=== PATIENT | male | born 1995 | race Caucasian/White ===

== ENCOUNTER 2021-08-15 00:24 | Emergency (ER) | payer OTHER, SELFPAY ==
[2021-08-15 01:02] VITALS: BP 124/52; PULSE 88; RESP 16; TEMP 37; O2SAT 96; BMI 27.2
[2021-08-15 03:49] VITALS: BP 110/66; PULSE 76; RESP 16; TEMP 36.4; O2SAT 97
[2021-08-15] MEDS: Diphth,Pertus(ACell),Tet Adult 0.5 ML SYRINGE IM (05:02)
[2021-08-15] MEDS: Lidocaine HCl 2 % MPF 5 ML VIAL SUBCUT (05:03)
--- NOTE | 2021-08-15 05:04 | ED.SKABFB ---
HPI - Skin/Abscess/Foreign Bdy General Chief complaint: Skin/Abscess/Foreign Body Stated complaint: lac @ work Time Seen by Provider: 08/15/21 04:37 Source: patient Mode of arrival: ambulatory History of Present Illness HPI narrative: 26-year-old male without significant past medical history presents with laceration to the left index finger while at work with scissors. Patient is unsure of last tetanus shot. Related Data Allergies Allergy/AdvReac Type Severity Reaction Status Date / Time No Known Allergies Allergy Verified 08/15/21 01:01 Review of Systems Review of Systems: Pertinent positives and negatives as stated in HPI 10 point review of systems is otherwise negative. PMFSH Past Medical History Source: nursing notes reviewed Medical History No known health problems Social History Social History Advance Directives: No Advance Directives Information Provided: No Physical Exam Vital Signs: Vital Signs: Last Vital Signs Temp 97.5 F 08/15/21 03:49 Pulse 76 08/15/21 03:49 Resp 16 08/15/21 03:49 BP 110/66 08/15/21 03:49 Pulse Ox 97 08/15/21 03:49 BMI result Body Mass Index 27.2 VITAL SIGNS: Reviewed. GENERAL: Well developed, well nourished, in no acute distress. HEAD: Normocephalic/atraumatic, EYES: PERRLA, EOMI LUNGS: Normal breath sounds. No adventitious sounds or accessory muscle use. SpO2<97> CARDIOVASCULAR: Regular rate and rhythm without noted murmurs ABDOMEN: Soft, non-tender, non-distended with bowel sounds. LEFT FINGER: No deformity but there is laceration to the tip of the finger NEUROLOGIC: Alert and oriented x 4. Course Course Course Narrative: Minor laceration to the left tip of index finger. Repaired with Dermabond after copious irrigation due to superficiality. Patient received Tdap. Procedures Laceration Laceration 1: Site: upper extremity Side (If applicable): left Size (cm): 1 Description: linear Depth: simple, single layer Local Anesthetic: lidocaine 2% Amount of anesthesia used (mL): 5 Pre-repair: wound explored, irrigated extensively and deep structures intact Skin layer closed with: other Discharge Plan Discharge Clinical Impression: Laceration of finger of left hand Patient Disposition: Home, Self-Care Instructions: Laceration (ED), Skin Adhesive Care (ED) Additional Instructions: Recommend [id number] Tylenol/ibuprofen as needed for pain control. Do not remove the dressing for 24 hours. You may return to work without limitations other than wearing a protective covering over that finger. Return to the ER for any worsening of symptoms.
== END 2021-08-15 05:57 | disposition home or self-care (01) ==
PROVIDERS: Emergency Provider Student in an Organized Health Care Education/Training Program
DX: S61.211A Laceration without foreign body of left index finger without damage to nail, initial encounter (principal); W27.2XXA Contact with scissors, initial encounter; Y93.89 Activity, other specified; Y92.59 Other trade areas as the place of occurrence of the external cause; Y99.0 Civilian activity done for income or pay
CPT/HCPCS: 12001; 90471; 90715; 99284

== ENCOUNTER 2022-08-28 19:49 | Emergency (ER) | payer OTHER, SELFPAY ==
--- NOTE | 2022-08-28 20:14 | PC.NURSE ---
Pt called @ 2013 and was not in the WR.
== END 2022-08-28 21:06 | disposition left against medical advice (07) ==
LOC: HO.ED 21:03
PROVIDERS: Emergency Provider Emergency Medicine
DX: J02.9 Acute pharyngitis, unspecified (principal)

== ENCOUNTER 2023-12-01 20:51 | Emergency (ER) | payer BC, SELFPAY ==
--- NOTE | ~2023-12-01 | XR_ITS ---
EXAMINATION: XR CHEST CLINICAL INFORMATION: Shortness of breath COMPARISON: None available. TECHNIQUE: Frontal view of the chest was obtained. FINDINGS: The cardiac and mediastinal contours are normal. The lungs are well-inflated. There is question of increased central bronchial wall thickening. No evidence of lobar pneumonia. No pleural effusion or pneumothorax. Bony structures unremarkable. XR/XR chest 1V IMPRESSION: Hyperinflation and question central bronchial wall thickening. No evidence of pneumonia.
[2023-12-01 20:56] VITALS: BP 160/110; PULSE 130; O2SAT 99
--- NOTE | 2023-12-01 21:09 | ECG_ITS ---
Test Reason : ATHSMA Blood Pressure : / mmHG Vent. Rate : 112 BPM Atrial Rate : 112 BPM P-R Int : 134 ms QRS Dur : 084 ms QT Int : 322 ms P-R-T Axes : 079 091 057 degrees QTc Int : 439 ms Sinus tachycardia Rightward axis Borderline ECG No previous ECGs available Referred By: Dave Woo Electronically Signed By:BERTHA ZEE
[2023-12-01 21:10] VITALS: BP 131/88; PULSE 113; RESP 24; TEMP 36.6; O2SAT 96; BMI 24.4
[2023-12-01] MEDS: predniSONE 20 MG TABLET 60 MG PO (21:16)
[2023-12-01] MEDS: Magnesium Sulfate/H2O 2 GM/50 ML PIGGYBACK IV (21:31)
--- NOTE | 2023-12-01 21:33 | PC.NURSE ---
RT called to assess patient, bronch protocol in. RT stated that provider told him the patient did not need intervention upon admission to ED. Informed ED and provider that patient is wheezy in all 4 quadrants, needs RT assessment, provider to bedside, RT to come and assess patient. 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
[2023-12-01 21:42] LABS: COVID-19 Test Negative (Negative); IDNOW Serial# 152EDE1D
[2023-12-01] MEDS: Albuterol Sulfate 2.5 MG, Albuterol/Iprat 2.5/0.5MG 3 ML 3 ML INHALE (21:42)
[2023-12-01 21:45] VITALS: PULSE 119; RESP 12; O2SAT 96
--- NOTE | 2023-12-01 22:26 | ED.ASTHMA ---
HPI - Asthma General Chief Complaint: Asthma Stated Complaint: Difficulty breathing Time Seen by Provider: 12/01/23 21:00 Source: patient Mode of arrival: ambulatory Limitations: no limitations History of Present Illness ED Provider: bety VARELA Narrative: Patient with no history of asthma in the past using inhaler for last 2 years off and on brother has history of asthma no new chemicals at work or home does have a cat for long time comes here for increased shortness of breath saturating in 86% improved after 4 L to 100% and received DuoNeb treatment by EMS Related Data Previous Rx's ?Medication ?Instructions ?Recorded albuterol sulfate 90 mcg/actuation 2 puff inhalation Q4-6H PRN 12/01/23 aerosol inhaler (ProAir HFA) shortness of breath or wheezing #8.5 grams prednisone 20 mg tablet 40 mg (2 x 20 mg) PO DAILY #10 tabs 12/01/23 Allergies Allergy/AdvReac Type Severity Reaction Status Date / Time No Known Allergies Allergy Verified 12/01/23 21:12 Review of Systems Review of Systems: Yes all other systems are reviewed and are negative [facility] Past Medical History Medical History No known health problems Social History Social History Alcohol intake: current Alcohol intake frequency: a few times a week Smoked in Last 30 Days: No Use of substances other than those prescribed or required for medical reasons: Yes Substance Use Type: Marijuana Substance Use Frequency: Socially Advance Directives: No Advance Directives Information Provided: No Do you have a plan to hurt others: No Plan Physical Exam Vital Signs: Vital Signs: Last Vital Signs Temp 97.9 F 12/01/23 23:04 Pulse 110 H 12/01/23 23:04 Resp 16 12/01/23 23:04 BP 112/82 12/01/23 23:04 Pulse Ox 95 12/01/23 23:04 O2 Del Method Room Air 12/01/23 23:04 Oxygen Flow Rate 3 12/01/23 21:10 BMI result Body Mass Index 24.4 Appearance: Alert. Oriented X3. Moderate respiratory distress Eyes: PERRLA, No Nystagmus ENT: Pharynx normal. Oral Mucosa moist Neck: Normal inspection. Neck supple. CVS: Normal heart rate and rhythm. Pulses normal. Respiratory: Moderate respiratory distress. Equal air entry bilateral, bilateral wheezing Abdomen: Soft and nontender. Bowel sounds are present, no mass palpable, no CVA tenderness Skin: Skin warm and dry. Normal skin color. Normal skin turgor. Extremities: No lower extremity edema. No calf tenderness Neuro: Oriented X 3. Medications Administered Discontinued Medications Generic Name Dose Route Start Last Admin Trade Name Freq PRN Reason Stop Dose Admin Albuterol Sulfate 2.5 mg/ 0 mg 12/01/23 21:39 12/01/23 21:42 Albuterol/Ipratropium 3 ml INHALE 12/01/23 21:40 2.5 dose ONCE ONE Administration Magnesium Sulfate 2 gm in 50 mls @ 150 mls/hr 12/01/23 21:27 12/01/23 21:52 Magnesium Sulfate/H2o IV 12/01/23 21:46 Infused ONCE ONE Infusion Prednisone 60 mg 12/01/23 21:00 12/01/23 21:16 Prednisone 20 Mg Tablet PO 12/01/23 21:01 60 mg ONCE ONE Administration Medical Decision Making Medical Decision Making [facility] Narrative: Patient has severe asthma with history of asthma for last 2 years improved after nebulizing treatment will discharge patient home on inhaler and prednisone Admission/Observation Consideration of admission/observation: Escalation of care including admission/observation considered Lab Data [facility] Lab Attestation statement: I reviewed the patient's lab results. Labs: Lab Results 12/01/23 Range/Units 21:24 COVID-19 ([facility]ASIA) Negative (Negative) COVID-19 Clin Com See Note Independent Interpretation I performed an independent interpretation of an: Plain X-Ray Radiology Impression Discussion of test interpretation with radiology: I have reviewed the radiologist's reading. Discharge Plan Discharge Clinical Impression: Asthma with acute exacerbation Patient Disposition: Home, Self-Care Instructions: Asthma (ED) Additional Instructions: Use inhaler and prednisone as prescribed Follow with your PCP if not better Prescriptions: New prednisone 20 mg tablet 40 mg PO DAILY Qty: 10 0RF albuterol sulfate [ProAir HFA] 90 mcg/actuation HFA aerosol inhaler 2 puff inhalation Q4-6H PRN (Reason: shortness of breath or wheezing) Qty: 8.5 0RF Interventions: ED Discharge Assessment Last Done: 12/01/23 23:04 Discharge Date/Time: 12/01/23 23:06 Print Language: Albanian
[2023-12-01 22:41] VITALS: BP 112/82; PULSE 118; RESP 16; O2SAT 95
[2023-12-01 23:04] VITALS: BP 112/82; PULSE 110; RESP 16; TEMP 36.6; O2SAT 95
== END 2023-12-01 23:06 | disposition home or self-care (01) ==
PROVIDERS: Emergency Provider Internal Medicine
DX: J45.901 Unspecified asthma with (acute) exacerbation (principal); Z11.52 Encounter for screening for COVID-19
CPT/HCPCS: 71045; 87635; 93005; 94640; 96365; 99284; 99285; J3475

== ENCOUNTER → 2023-12-01 21:09 | Outpatient (BNV) | payer SELFPAY | PROVIDERS: Emergency Provider Internal Medicine; Visit Provider Internal Medicine | DX: R00.0 Tachycardia, unspecified (principal) | CPT/HCPCS: 93010 ==

== ENCOUNTER 2023-12-12 09:38 | Emergency (ER) | payer BC, SELFPAY ==
[2023-12-12 09:40] VITALS: BP 138/101; PULSE 98; RESP 16; TEMP 36.4; O2SAT 97; BMI 28.7
--- NOTE | 2023-12-12 09:52 | ED_ITS ---
HPI - General Adult General Chief complaint: General Medical Stated complaint: wanting antibiotics Time Seen by Provider: 12/12/23 09:46 Source: patient Mode of arrival: ambulatory Limitations: no limitations History of Present Illness ED Provider: Cal Moe PA-C HPI narrative: 28-year-old male healthy with no past medical history presents to ED for penile discharge after unprotected sex 4 days ago. Patient denies ever having any testicular pain. Patient denies any penile lesions. Patient states no nausea, vomiting, fever, flank pain, abdominal pain, or chills. Related Data Previous Rx's ?Medication ?Instructions ?Recorded albuterol sulfate 90 mcg/actuation 2 puff inhalation Q4-6H PRN 12/01/23 aerosol inhaler (ProAir HFA) shortness of breath or wheezing #8.5 grams prednisone 20 mg tablet 40 mg (2 x 20 mg) PO DAILY #10 tabs 12/01/23 doxycycline hyclate 100 mg capsule 100 mg PO BID 7 days #14 caps 12/12/23 Allergies Allergy/AdvReac Type Severity Reaction Status Date / Time No Known Allergies Allergy Verified 12/12/23 09:41 Review of Systems Review of Systems: Penile discharge Yes all other systems are reviewed and are negative PMFSH Past Medical History Medical History No known health problems Social History Social History Alcohol intake: current Alcohol intake frequency: a few times a week Substance Use Type: Marijuana Advance Directives: No Advance Directives Information Provided: No Do you have a plan to hurt others: No Plan Physical Exam ED Vital Signs: Vital Signs - 24 hr 12/12/23 09:40 12/12/23 10:14 Temperature 97.6 F 98.4 F Pulse Rate 98 98 Respiratory Rate 16 16 Blood Pressure 138/101 H 155/88 H Pulse Oximetry 97 99 Oxygen Delivery Method Room Air Room Air BMI result Body Mass Index 28.7 Const General: cooperative, healthy appearing, comfortable, no acute distress, well developed, alert, awake and Physically active Orientation/consciousness: oriented to person, oriented to place, oriented to time and patient oriented x3 HENMT Head: Yes normal to inspection, Yes No palpable skull fracture present, Yes normocephalic, Yes atraumatic and No abrasion Eyes General: appearance normal, both eyes and all related structures Neck Neck: Yes normal visual inspection, Yes full ROM, Yes no lymphadenopathy, Yes no meningeal signs, Yes trachea midline, Yes supple, No anterior neck swelling and No tender Chest Chest palpation & inspection: normal inspection of the chest and normal palpation of entire chest wall Resp Effort & Inspection: normal respiratory effort and able to speak in complete sentences Auscultation: clear to auscultation bilaterally Cardio Jugular venous distension: no JVD Heart sounds: S1 normal heart sound present and S2 normal heart sound present GI Inspection: Yes normal to inspection Palpation (GI): Soft to palpation, not firm, nontender, no guarding and not rigid Other: Negative for any penile lesions, testicular swelling, testicular tenderness, high riding testicle, ecchymosis, redness, or vesicular lesion General: Yes Bimanual renal exam normal bilaterally, No CVA tenderness and Yes no CVA tenderness Male General Exam: Yes normal external exam Penis: normal penis Meatus: meatus normal Scrotum: scrotum normal Testes: Testes normal Back/Spine/Pelvis Back: no CVA tenderness, No CVA tenderness and No back tenderness Skin General skin exam: no rashes or lesions noted, elasticity normal and turgor normal Neuro General: oriented to person, oriented to place, oriented to time, patient oriented x3, gait normal, tone normal, moves all extremities, Normal light touch and pain sensation, no meningeal signs, no focal motor deficits, CN's II-XI intact bilaterally and normal sensation to monofilament Extrem General: Yes normal to inspection, Yes full ROM and Yes capillary refill normal Psych Appearance: grossly normal, well kempt and not disheveled Medications Administered Discontinued Medications Generic Name Dose Route Start Last Admin Trade Name Freq PRN Reason Stop Dose Admin Ceftriaxone Sodium 500 mg/ 0 mg 12/12/23 10:01 12/12/23 10:35 Lidocaine HCl 1 ml IM 12/12/23 10:02 1 kit ONCE ONE Administration Medical Decision Making Medical Decision Making [facility] Narrative: 28-year-old male presents to ED for penile discharge after having unprotected sex 4 days ago. Triage says testicular pain, but patient denies ever having testicular pain. Patient was formed if he has testicular pain we will do ultrasound to make sure torsion or epididymitis. Patient was offered ultrasound but the patient is refusing states he did not have any testicular pain. Patient explained risks of not have ultrasound like torsion epididymitis. Patient explained risks and he still states he like to be discharged and will return if she has any testicular pain abdominal pain, flank pain, lesions, or any other concerning symptoms. Patient informed to follow-up with [facility] for further STI testing. Patient explained worrisome signs and informed to return to the ED if she has them. Differential Diagnosis Differential Diagnoses: The differential diagnosis associated with the presentation includes (chlaymida, gonorheaa, HErpes) Admission/Observation Consideration of admission/observation: Escalation of care including admission/observation considered Lab Data [facility] Lab Attestation statement: I reviewed the patient's lab results. Labs: Lab Results 12/12/23 Range/Units 09:56 Urine Color Yellow Urine Appearance Clear Urine pH 6.0 (5.0-9.0) Ur Specific [place] 1.020 (1.005-1.025) Urine Protein Negative (Neg-Trace) mg/dL Urine Glucose (UA) Negative (Negative) mg/dL Urine Ketones Negative (Negative) mg/dL Urine Blood Negative (Negative) Urine Nitrite Negative (Negative) Ur Leukocyte Esterase Negative (Negative) Urine RBC 0-2 (0-2) /HPF Urine WBC 0-5 (0-5) /HPF Ur Squamous Epith Cells 0-2 (0-2) /HPF Urine Bacteria None Seen (None Seen) Hyaline Casts 0-2 (0-2) /LPF Chlam trachomat DNA PCR NOT DETECTED (Not Detect.) N.gonorrhoeae DNA (PCR) NOT DETECTED (Not Detect.) Independent Historian Clinical information obtained from an independent historian. History obtained from or confirmed by: Other (patient) External Record Review External record reviewed: Other (prior visits) Prescription Management I considered prescription management with: Antibiotic Discharge Plan Discharge Clinical Impression: Discharge from penis Patient Disposition: Home, Self-Care Instructions: Safe Sex Practices (ED) Additional Instructions: You will be called with results of chlamydia gonorrhea. You refused a testicular ultrasound. Return to the ED immediately if you have any testicular pain, scrotal pain, high riding testicles, dysuria, hematuria, flank pain, abdominal pain, chills, profuse penile discharge, penile lesions or any other concerning symptoms. Recommend follow-up with primary care provider. Follow up with [facility] for further STI testing. [facility] Prescriptions: New doxycycline hyclate 100 mg capsule 100 mg PO BID 7 Days Qty: 14 0RF No Action prednisone 20 mg tablet 40 mg PO DAILY Qty: 10 0RF albuterol sulfate [ProAir HFA] 90 mcg/actuation HFA aerosol inhaler 2 puff inhalation Q4-6H PRN (Reason: shortness of breath or wheezing) Qty: 8.5 0RF Interventions: ED Discharge Assessment Last Done: 12/12/23 10:30 Discharge Date/Time: 12/12/23 11:25 Print Language: Italian
[2023-12-12 10:05] LABS: Appearance Urine Clear; Color Urine Yellow; Glucose Urine UA Negative (Negative); Leukocyte Esterase Urine Negative (Negative); Nitrite Urine Negative (Negative); Urine Blood Negative (Negative); Urine Ketones Negative (Negative); Urine Protein Negative (Neg-Trace)
[2023-12-12 10:07] LABS: Bacteria Urine None Seen (None Seen); Hyaline Casts Urine 0-2 /LPF (0-2); RBC Urine 0-2 /HPF (0-2); Squamous Epithelial Cell Urine 0-2 /HPF (0-2); WBC Urine 0-5 /HPF (0-5)
[2023-12-12 10:14] VITALS: BP 155/88; PULSE 98; RESP 16; TEMP 36.9; O2SAT 99
[2023-12-12 10:30] VITALS: BP 155/88; PULSE 98; RESP 16; TEMP 36.9; O2SAT 99
[2023-12-12] MEDS: cefTRIAXone sodium 500 MG, Lidocaine HCl 1 % MPF 1 ML IM (10:35)
[2023-12-12 13:48] LABS: CT PCR NOT DETECTED (Not Detect.); NG PCR NOT DETECTED (Not Detect.)
== END 2023-12-12 11:25 | disposition home or self-care (01) ==
PROVIDERS: Emergency Provider Emergency Medicine; PCP Internal Medicine
DX: R36.9 Urethral discharge, unspecified (principal); Z79.899 Other long term (current) drug therapy; Z20.2 Contact with and (suspected) exposure to infections with a predominantly sexual mode of transmission
CPT/HCPCS: 0353U; 81001; 96372; 99283; 99284; J0696

== ENCOUNTER 2024-06-19 05:18 | Emergency (ER) | payer BC, SELFPAY ==
[2024-06-19 05:28] VITALS: BP 127/91; BP 138/82; PULSE 122; PULSE 98; RESP 13; O2SAT 92; O2SAT 96; BMI 29.4
--- NOTE | 2024-06-19 06:05 | ED.SOB ---
HPI - SOB/Dyspnea General Chief Complaint: Dyspnea Stated Complaint: SOB/asthma Time Seen by Provider: 06/19/24 06:01 Source: patient and EMS Mode of arrival: EMS Limitations: no limitations History of Present Illness ED Provider: Dr. Mirian Tolbert HPI Narrative: patient comes to the emergency room complaining of an asthma exacerbation. Patient states that for the last 2 days he has been feeling short of breath, using his inhaler every 2-3 hours. Patient states that his cousin land him a neb machine to give himself neb treatments. However, patient is not feeling any better. Related Data Previous Rx's ?Medication ?Instructions ?Recorded albuterol sulfate 90 mcg/actuation 2 puff inhalation Q4-6H PRN 12/01/23 aerosol inhaler (ProAir HFA) shortness of breath or wheezing #8.5 grams prednisone 20 mg tablet 40 mg (2 x 20 mg) PO DAILY #10 tabs 12/01/23 doxycycline hyclate 100 mg capsule 100 mg PO BID 7 days #14 caps 12/12/23 albuterol sulfate 90 mcg/actuation 2 puff inhalation Q4-6H PRN 06/19/24 aerosol inhaler shortness of breath or wheezing #8.5 grams prednisone 50 mg tablet 50 mg PO DAILY #5 tabs 06/19/24 Allergies Allergy/AdvReac Type Severity Reaction Status Date / Time No Known Allergies Allergy Verified 06/19/24 05:35 Review of Systems Review of Systems: Constitutional : No Weight loss, No Fever, No Chills, No Night Sweats, No Fatigue, No Malaise ENT/Mouth : No Hearing loss, No Ear Pain, No Nasal Congestion, No Sinus Pain, No Hoarseness, No sore throat, No Rhinorrhea, No Swallowing Difficulty Eyes: No Eye Pain, No Swelling, No Redness, No Foreign Body, No Discharge, No Vision Changes Cardiovascular : No Chest Pain, No SOB, No Dyspnea on Exertion, No Orthopnea, No Edema, No Palpitations Respiratory : Complaining of cough, wheezing, shortness of breath Gastrointestinal : No Nausea, No Vomiting, No Diarrhea, No Constipation, No abdominal Pain, No Hematochezia, No Melena Genitourinary : no irregular bleeding, No Dysuria, No Urinary Frequency, No Hematuria, No Urinary Incontinence, No Urgency, No Flank Pain, No Urinary Flow Changes, No Hesitancy Musculoskeletal : No joint pain, No Myalgias, No Joint Swelling Skin : No Skin Lesions, No rash Neuro : No Weakness, No Numbness, No Paresthesias, No Loss of Consciousness, No Dizziness, No Headache Psych : No Anxiety/Panic, No Depression, No SI/HI/AH/VH, No Social Issues, Heme/Lymph: No Bruising, No Bleeding,No Lymphadenopathy Endocrine : No Polyuria, No Polydipsia, No Temperature Intolerance [facility] Past Medical History Medical History No known health problems Social History Social History Alcohol intake: current Alcohol intake frequency: a few times a week Smoked in Last 30 Days: No Use of substances other than those prescribed or required for medical reasons: Yes Substance Use Type: Marijuana Advance Directives: No Advance Directives Information Provided: Yes Do you have a plan to hurt others: No Plan Physical Exam Vital Signs: Vital Signs: Last Vital Signs Pulse 98 06/19/24 06:22 Resp 13 06/19/24 06:22 BP 127/91 H 06/19/24 05:28 Pulse Ox 96 06/19/24 05:28 O2 Del Method Room Air 06/19/24 05:28 BMI result Body Mass Index 29.4 Const: Other: Appearance: Alert. Oriented X3. No acute distress. Eyes: Pupils equal, round and reactive to light. ENT: Pharynx normal. Neck: Normal inspection. Neck supple. No lymph nodes noted. No crepitus CVS: Normal heart rate and rhythm. Pulses normal. Normal S1 and S2 Respiratory: No respiratory distress. patient has bilateral wheezing, speaking in full sentences , oxygen saturation 96% on room air Abdomen: Soft and nontender. No rigidity. No distention. Skin: Skin warm and dry. Normal skin color. Normal skin turgor. Extremities: No lower extremity edema. No Lacerations. No Rash Neuro: Oriented X 3. No motor deficit. No sensory deficit. Moving all extremities. No slurred speech. CN 2 through 12 grossly intact Psych: calm, cooperative, normal affect Course Course Course Narrative: patient receiving another nebulization treatment, IV Solu-Medrol and magnesium patient's basic labs pending. Medications Administered Generic Name Dose Route Start Last Admin Trade Name Freq PRN Reason Stop Dose Admin Magnesium Sulfate 2 gm in 50 mls @ 25 mls/hr 06/19/24 06:04 06/19/24 06:17 Magnesium Sulfate/H2o IV 06/19/24 08:03 25 mls/hr ONCE ONE Administration Discontinued Medications Generic Name Dose Route Start Last Admin Trade Name Leslye PRN Reason Stop Dose Admin Albuterol Sulfate 7.5 mg/ 0 mg 06/19/24 06:10 06/19/24 06:16 Albuterol/Ipratropium 3 ml INHALE 06/19/24 06:11 1 each ONCE ONE Administration Lorazepam 1 mg 06/19/24 06:30 06/19/24 06:35 Lorazepam 2 Mg/Ml Vial IVPUSH 06/19/24 06:31 1 mg ONCE ONE Administration Methylprednisolone Sodium Succinate 125 mg 06/19/24 06:04 06/19/24 06:17 Methylprednisolone Sod Succ 125 Mg/2 Ml Vial IVPUSH 06/19/24 06:05 125 mg ONCE ONE Administration Medical Decision Making Medical Decision Making [facility] Narrative: my interpretation of labs: Patient's hematology and chemistry at baseline. Patient's oxygen saturation 96% on room air. While patient was receiving his nebulization treatment, patient was feeling anxious about the palpitations due to the albuterol, patient received a dose of 1 mg IV Ativan which helped him quite a bit. Patient being ambulated in the ED, patient states that he feels well. Lab Data [facility] Lab Attestation statement: I reviewed the patient's lab results. 06/19/24 06:21 06/19/24 06:21 Labs: Lab Results 06/19/24 06/19/24 Range/Units 06:21 06:30 WBC 5.8 (4.8-10.8) X10*3/uL RBC 5.42 (4.60-5.80) X10*6/uL Hgb 16.2 (14.0-18.0) g/dl Hct 46.1 (42.0-52.0) % MCV 85.1 (80.0-98.0) fL MCH 29.9 (27.0-33.0) pg MCHC 35.1 (31.0-36.0) g/dl RDW 12.5 (11.0-16.0) % Plt Count 279 (160-400) X10*3/uL MPV 10.9 (9.4-12.4) fL Immature Gran % (Auto) 0.2 (0.0-0.4) % Neut % (Auto) 49.0 (45-73) % Lymph % (Auto) 37.7 (20-40) % [place] % (Auto) 9.2 (2-11) % Eos % (Auto) 2.2 (0-4) % Baso % (Auto) 1.7 (0-2) % Lymph # (Auto) 2.2 (1.2-4.9) X10*3/uL [place] # (Auto) 0.5 (0.1-1.2) X10*3/uL Eos # (Auto) 0.1 (0.0-0.4) X10*3/uL Baso # (Auto) 0.1 (0.0-0.2) X10*3/uL Abs Immat Gran (auto) 0.01 (0.00-0.03) X10*3/uL Absolute Neuts (auto) 2.8 (2.0-8.3) x10*3/uL Absolute Nucleated RBC 0.000 (0.0-0.012) X10*3/uL Nucleated RBC % (auto) 0.0 (0.0-0.2) /100WBC VBG pH 7.47 H (7.32-7.43) VBG pCO2 39 mmHg VBG pO2 60 mmHg VBG HCO3 28 H (22-26) mmol/L VBG O2 Saturation 88.0 % VBG Base Excess 4.9 mmol/L Sodium 138 (135-145) mmol/L Potassium 3.3 (3.3-5.1) mmol/L Chloride 100 (96-108) mmol/L Carbon Dioxide 21 L (22-29) mmol/L Anion Gap 20 (12-20) BUN 22 H (9-16) mg/dL Creatinine 1.22 (0.5-1.4) mg/dL Estim Creat Clear Calc 104.2 Estimated GFR > 60 Random Glucose 107 (60-115) mg/dL Calcium 9.5 (8.4-10.2) mg/dL Total Bilirubin 0.6 (0.0-1.0) mg/dL Direct Bilirubin 0.1 (0.0-0.5) mg/dL AST 40 H (5-37) U/L ALT 30 (0-40) U/L Alkaline Phosphatase 67 (39-117) U/L Total Protein 7.3 (6.5-8.0) g/dL Albumin 4.4 (3.5-5.0) g/dL Critical Care Time Critical Care Time Critical Care Time: Yes Total Critical Care Time: 45 Attestation: I have personally provided critical care time. Time includes review of lab data, radiology results, discussion with consultants, and monitoring for potential decompensation. Intervention performed as documented. Discharge Plan Discharge Clinical Impression: Asthma with exacerbation Patient Disposition: Home, Self-Care Instructions: Asthma (ED) Additional Instructions: Please follow-up with your primary care physician tomorrow. If you have any worsening or new symptoms, please return to the emergency room or call 911 Prescriptions: New albuterol sulfate 90 mcg/actuation HFA aerosol inhaler 2 puff inhalation Q4-6H PRN (Reason: shortness of breath or wheezing) Qty: 8.5 0RF prednisone 50 mg tablet 50 mg PO DAILY Qty: 5 0RF No Action prednisone 20 mg tablet 40 mg PO DAILY Qty: 10 0RF albuterol sulfate [ProAir HFA] 90 mcg/actuation HFA aerosol inhaler 2 puff inhalation Q4-6H PRN (Reason: shortness of breath or wheezing) Qty: 8.5 0RF doxycycline hyclate 100 mg capsule 100 mg PO BID 7 Days Qty: 14 0RF Print Language: Nepali
[2024-06-19] MEDS: Albuterol Sulfate 7.5 MG, Albuterol/Iprat 2.5/0.5MG 3 ML 3 ML INHALE (06:16)
[2024-06-19] MEDS: methylPREDNISolone Sod Succ 125 MG/2 ML VIAL IVPUSH (06:17)
[2024-06-19] MEDS: Magnesium Sulfate/H2O 2 GM/50 ML PIGGYBACK IV (06:17)
[2024-06-19 06:22] VITALS: PULSE 98; RESP 13; O2SAT 95
[2024-06-19 06:34] LABS: Venous Blood Gas Refer to POC result
[2024-06-19 06:35] LABS: VBG Base Excess 4.9 mmol/L; VBG HCO3 28 mmol/L (22-26); VBG pCO2 39 mmHg; VBG pH 7.47 (7.32-7.43); VBG pO2 60 mmHg
[2024-06-19] MEDS: LORazepam 2 MG/ML VIAL 1 MG IVPUSH (06:35)
[2024-06-19 06:36] LABS: MANUAL DIFF FLAG NO
[2024-06-19 06:53] LABS: Alanine Aminotransferase 30 U/L (0-40); Albumin Level 4.4 g/dL (3.5-5.0); Alkaline Phosphatase 67 U/L (39-117); Anion Gap 20 (12-20); Aspartate Amino Transferase 40 U/L (5-37); Bilirubin Direct 0.1 mg/dL (0.0-0.5); Bilirubin Total 0.6 mg/dL (0.0-1.0); Blood Urea Nitrogen 22 mg/dL (9-16); Calcium 9.5 mg/dL (8.4-10.2); Carbon Dioxide 21 mmol/L (22-29); Chloride 100 mmol/L (96-108); Creatinine Clr Calc Pharmacy 104.2; Estimated Glomerular Filt Rate > 60; Glucose Random 107 mg/dL (60-115); Potassium 3.3 mmol/L (3.3-5.1); Sodium 138 mmol/L (135-145); Total Protein 7.3 g/dL (6.5-8.0)
[2024-06-19 06:56] LABS: Basophils Absolute Auto 0.1 X10*3/uL (0.0-0.2); Basophils Percent Auto 1.7 % (0-2); Eosinophils Absolute Auto 0.1 X10*3/uL (0.0-0.4); Eosinophils Percent Auto 2.2 % (0-4); Hematocrit 46.1 % (42.0-52.0); Hemoglobin 16.2 g/dl (14.0-18.0); Imm Gran Abs Auto 0.01 X10*3/uL (0.00-0.03); Imm Gran Pct Auto 0.2 % (0.0-0.4); Lymphocytes Absolute Auto 2.2 X10*3/uL (1.2-4.9); Lymphocytes Percent Auto 37.7 % (20-40); Mean Corpuscular HGB Conc 35.1 g/dl (31.0-36.0); Mean Corpuscular Hemoglobin 29.9 pg (27.0-33.0); Mean Corpuscular Volume 85.1 fL (80.0-98.0); Mean Platelet Volume 10.9 fL (9.4-12.4); Monocytes Absolute Auto 0.5 X10*3/uL (0.1-1.2); Monocytes Percent Auto 9.2 % (2-11); Neutrophils Absolute Auto 2.8 x10*3/uL (2.0-8.3); Platelet Count 279 X10*3/uL (160-400); Red Blood Count 5.42 X10*6/uL (4.60-5.80); Red Cell Distribution Width 12.5 % (11.0-16.0); White Blood Count 5.8 X10*3/uL (4.8-10.8)
[2024-06-19 08:00] VITALS: BP 144/83; PULSE 122; RESP 19; TEMP 36.7; O2SAT 96
[2024-06-19 10:04] VITALS: BP 153/87; PULSE 106; RESP 18; TEMP 36.2; O2SAT 94
--- NOTE | 2024-06-19 10:07 | PC.NURSE ---
Ambulation trial with pt, O2 remained 94-95% during ambulation. Per MD, plan for pt to be d/c home.
[2024-06-19 10:09] VITALS: BP 153/87; PULSE 106; RESP 18; TEMP 36.2; O2SAT 94
== END 2024-06-19 10:09 | disposition home or self-care (01) ==
PROVIDERS: Emergency Medicine; Emergency Provider Emergency Medicine
DX: J45.901 Unspecified asthma with (acute) exacerbation (principal); R06.02 Shortness of breath; F12.90 Cannabis use, unspecified, uncomplicated
CPT/HCPCS: 36415; 80048; 80076; 82803; 85025; 94640; 96365; 96366; 96375; 99284; 99285; J2060; J2919; J3475

== ENCOUNTER 2025-01-06 13:28 | Emergency (ER) | payer OTHER, SELFPAY ==
--- NOTE | ~2025-01-06 | CT_ITS ---
CLINICAL HISTORY: diffuse abdominal pain rectal bleeding CT ABDOMEN AND PELVIS WITH CONTRAST Comparison: None provided Findings: The lung bases are clear. No acute abnormalities in the solid organs. There is diffuse fatty infiltration of the liver. Multiple tiny nonobstructing calculi in the bilateral kidneys appear present. No large calcified gallstone. No AAA. No bowel obstruction, pneumoperitoneum, or pneumatosis. There is mucosal and paracolic edema in the mid to distal transverse colon and throughout the descending colon. No free or loculated fluid collection. Pelvic contents unremarkable. Normal appendix. The bones are intact. IMPRESSION: 1. Inflammatory/infectious colitis extends from the mid transverse colon to the distal descending colon. No bowel perforation or ischemia. No paracolic abscess. 2. No bowel obstruction or ascites. 3. No acute obstructive uropathy. Probable bilateral tiny nonobstructing intrarenal calculi. 4. Normal appendix. This document has been electronically signed by: Angelica Anna DO on 01/06/2025 18:46:51
[2025-01-06 13:37] VITALS: BP 124/90; PULSE 79; RESP 16; TEMP 36.6; O2SAT 98; BMI 31.8
--- NOTE | 2025-01-06 13:39 | ED_ITS ---
HPI - General Adult General Chief complaint: Nausea/Vomiting/Diarrhea Stated complaint: vomiting blood abd pain Time Seen by Provider: 01/06/25 15:40 Source: patient and old records reviewed Mode of arrival: ambulatory Limitations: no limitations History of Present Illness ED Provider: GOLDIE VARELA narrative: 29 yo male with PMH of ETOH abuse but no prior detox or seizures states he drinks about 1.5 sleeves a day, last drink last night. He notes since 130am he has been vomiting several times and seeing blood in the emesis. He c/o abdominal cramps as well and has had diarrhea and saw some brb in it. He has no hx of bleeding has never had colonoscopy/EGD. He takes no NSAIDs or thinners. He notes he has never experienced ETOH withdrawal. No food exposures but states his mom had e. coli in SNF and he visited her then got sick. complaint: GIB symptoms, ETOH abuse Onset (ago): day(s) (2am today) Location: abdomen Radiation: non-radiation Severity: moderate Quality: aching and constant Pain Consistency: constant Relieving factors: none Exacerbating factors: eating and other (vomiting) Associated symptoms: loss of appetite, malaise, nausea/vomiting and weakness Treatments prior to arrival: none Related Data Previous Rx's ?Medication ?Instructions ?Recorded albuterol sulfate 90 mcg/actuation 2 puff inhalation Q 4-6H PRN 12/01/23 aerosol inhaler (ProAir HFA) shortness of breath or wh eezing #8.5 grams prednisone 20 mg tablet 40 mg (2 x 20 mg) PO DAILY # 10 tabs 12/01/23 doxycycline hyclate 100 mg capsule 100 mg PO BID 7 day s #14 caps 12/12/23 albuterol sulfate 90 mcg/actuation 2 puff inhalation Q 4-6H PRN 06/19/24 aerosol inhaler shortness of breath or wheez ing #8.5 grams prednisone 50 mg tablet 50 mg PO DAILY #5 tabs 06/19 chlordiazepoxide HCl 25 mg capsule 50 mg (2 x 25 mg) P O Q4H PRN 01/06/25 alcohol withdrawal 6 doses #12 caps omeprazole 20 mg capsule,delayed 20 mg PO BID 14 days #28 caps 01/06/25 release ondansetron 4 mg disintegrating 4 mg PO Q8H PRN nausea and 01/06/25 tablet vomiting #20 tabs ondansetron 4 mg disintegrating 4 mg PO Q8H PRN nausea and 01/06/25 tablet vomiting #20 tabs Allergies Allergy/AdvReac Type Severity Reaction Status Date / Time No Known Allergies Allergy Verified 01/06/25 13:39 Review of Systems 2 Review of Systems: Constitutional : No Weight loss, No Fever, No Chills ENT/Mouth : No sore throat, No Rhinorrhea Eyes: No Swelling, No Redness Cardiovascular : No Chest Pain, No SOB, NoEdema Respiratory : No Cough, No Sputum, No Wheezing Gastrointestinal : Positive Nausea, Positive Vomiting, positive Diarrhea, positive abdominal Pain, pos Hematochezia, No Melena Genitourinary : No Dysuria, No Urinary Frequency, No Hematuria, No Urgency Musculoskeletal : No joint pain, No Myalgias, No Joint Swelling Skin : No Skin Lesions, No rash Neuro : No Weakness, No Numbness, No Dizziness, No Headache All other systems reviewed and are negative. [facility] Past Medical History Attestation statement: The following information was validated with the patient. Source: old records reviewed Medical History No known health problems Social History Social History Alcohol intake: current Alcohol intake frequency: a few times a week Substance Use Type: Marijuana Advance Directives: No Advance Directives Information Provided: No Do you have a plan to hurt others: No Plan Physical Exam ED Vital Signs: Vital Signs - 24 hr 01/06/25 13:37 01/06/25 18:17 Temperature 97.8 F 98.5 F Pulse Rate 79 78 Respiratory Rate 16 16 Blood Pressure 124/90 H 140/79 H Pulse Oximetry 98 98 Oxygen Delivery Method Room Air Room Air BMI result Body Mass Index 31.8 Appearance: Alert. Oriented X3. No acute distress. Eyes: Pupils equal, round and reactive to light. ENT: Pharynx normal. Tongue fasciculations Neck: Normal inspection. Neck supple. CVS: Normal heart rate and rhythm. Pulses normal. Respiratory: No respiratory distress. Breath sounds normal. Abdomen: Soft and mild diffuse ttp but no rebound or guarding. Stool light brown Skin: Skin warm and dry. Normal skin color. Normal skin turgor. Extremities: No lower extremity edema. No calf ttp Neuro: Oriented X 3. No motor deficit. No sensory deficit. CN2-12 intact Course Course Course Narrative: This is a rapid medical exam performed by Edgardo Rm NP: Additional HPI, ROS, PE not included below will be deferred to primary provider. Patient is a 29-year-old male presenting with complaint of vomiting blood since 2am, at least 10 episodes. Daily drinker around 15 nips, last drink was 9pm last night. Denies history of withdrawal or seizures. Abd pain of 12/30. Plan: labs Reevaluation(s) Reevaluation #1: signed out to Dr. Woo pending CT scan Medications Administered Discontinued Medications Generic Name Dose Route Start Last Admin Trade Name Leslye PRN Reason Stop Dose Admin Diazepam 2.5 mg 01/06/25 15:53 01/06/25 17:19 Diazepam 10 Mg/2 Ml Cartridge IVPUSH 01/06/25 15:54 2.5 mg STAT STA Administration Thiamine HCl 200 mg/ Sodium 102 mls @ 204 mls/hr 01/06/25 15:45 01/06/25 17:47 Chloride IV 01/06/25 16:14 Infused ONCE ONE Infusion Lactated Ringer's 1,000 mls @ 999 mls/hr 01/06/25 15:45 01/06/25 18:18 Lr IV 01/06/25 16:45 Infused .Q1H1M ONE Infusion Iohexol 85 ml 01/06/25 18:00 01/06/25 18:00 Iohexol 350 Mg/Ml 100 Ml Infus..Btl IV 01/06/25 18:01 85 ml ONCE ONE Administration Pantoprazole Sodium 40 mg 01/06/25 15:45 01/06/25 17:19 Pantoprazole Sodium 40 Mg/10 Ml Vial IVPUSH 01/06/25 15:46 40 mg ONCE ONE Administration Medical Decision Making Medical Decision Making [facility] Narrative: 29 yo male with PMH of ETOH use disorder no prior seizures or withdrawal here with c/o n/v/d abdominal pain that he reports since 130am. At this time has mild tongue fasciculations but VS stable and no tremors on exam. He has brown stool that is guiac negative, he has stable H/H which is about 12 hours after the bleeding. I plan to start on thiamine, IV protonix, hydration and repeat CBC if there is no decrease plan to start on zofran, librium, PO PPI BID for 2 weeks. He has only mild tongue fasciculations and no tremors, HTN/tachycardia to suggest withdrawal. I did order CT scan as well for possible inflammatory process though less likely. Differential Diagnosis Differential Diagnoses: The differential diagnosis associated with the presentation includes ETOH gastritis, alcohol use disorder, viral syndrome Admission/Observation Consideration of admission/observation: Escalation of care including admission/observation considered H/H stable if CT scan normal and VS and appearance stable can be DC home Lab Data MDM Lab Attestation statement: I reviewed the patient's lab results. 01/06/25 16:39 01/06/25 14:01 Labs: Lab Results 01/06/25 01/06/25 01/06/25 Range/Units 14:01 15:51 16:39 WBC 7.7 8.0 (4.8-10.8) X10*3/uL RBC 5.34 5.24 (4.60-5.80) X10*6/uL Hgb 16.1 15.8 (14.0-18.0) g/dl Hct 45.5 44.4 (42.0-52.0) % MCV 85.2 84.7 (80.0-98.0) fL MCH 30.1 30.2 (27.0-33.0) pg MCHC 35.4 35.6 (31.0-36.0) g/dl RDW 12.3 12.1 (11.0-16.0) % Plt Count 230 238 (160-400) X10*3/uL MPV 10.4 11.0 (9.4-12.4) fL Immature Gran % (Auto) 0.3 (0.0-0.4) % Neut % (Auto) 72.4 (45-73) % Lymph % (Auto) 17.3 L (20-40) % [place] % (Auto) 7.6 (2-11) % Eos % (Auto) 1.7 (0-4) % Baso % (Auto) 0.7 (0-2) % Lymph # (Auto) 1.3 (1.2-4.9) X10*3/uL [place] # (Auto) 0.6 (0.1-1.2) X10*3/uL Eos # (Auto) 0.1 (0.0-0.4) X10*3/uL Baso # (Auto) 0.1 (0.0-0.2) X10*3/uL Abs Immat Gran (auto) 0.02 (0.00-0.03) X10*3/uL Absolute Neuts (auto) 5.6 (2.0-8.3) x10*3/uL Absolute Nucleated RBC 0.000 0.000 (0.0-0.012) X10*3/uL Nucleated RBC % (auto) 0.0 0.0 (0.0-0.2) /100WBC PT 12.6 H (10.9-12.4) SEC INR 1.1 (0.9-1.1) Sodium 139 (135-145) mmol/L Potassium 4.3 D (3.3-5.1) mmol/L Chloride 102 (96-108) mmol/L Carbon Dioxide 25 (22-29) mmol/L Anion Gap 16 (12-20) BUN 21 H (9-16) mg/dL Creatinine 1.11 (0.5-1.4) mg/dL Estim Creat Clear Calc 118.7 Estimated GFR > 60 Random Glucose 94 (60-115) mg/dL Calcium 9.3 (8.4-10.2) mg/dL Magnesium 1.9 (1.6-2.6) mg/dL Total Bilirubin 1.4 H (0.0-1.0) mg/dL AST 42 H (5-37) U/L ALT 51 H (0-40) U/L Alkaline Phosphatase 60 (39-117) U/L Total Protein 7.6 (6.5-8.0) g/dL Albumin 4.9 (3.5-5.0) g/dL Lipase 12 (8-78) U/L Stool Occult Blood NEGATIVE (NEGATIVE) Ethyl Alcohol 47 mg/dL Independent Interpretation I performed an independent interpretation of an: EKG Interpretation: Rate: 76 Rhythm: NSR [place]: normal Normal P waves. Normal JOSH. Normal QRS complex. ST T wave : inverted t waves V1, no JOSE qTC: 450 prior studies: no acute ischemia The study has been interpreted contemporaneously by me. . Radiology Impression Discussion of test interpretation with radiology: I have reviewed the radiologist's reading. Radiologist Impression: MPRESSION: 1. Inflammatory/infectious colitis extends from the mid transverse colon to the distal descending colon. No bowel perforation or ischemia. No paracolic abscess. 2. No bowel obstruction or ascites. 3. No acute obstructive uropathy. Probable bilateral tiny nonobstructing intrarenal calculi. 4. Normal appendix. This document has been electronically signed by: Angelica Anna DO on 01/06/2025 18:46:51 External Record Review External record reviewed: Outpatient record Prescription Management I considered prescription management with: Pain Medication and Other Critical Care Time Critical Care Time Critical Care Time: Yes Total Critical Care Time: 35 Attestation: Time is exclusive of separately billable procedures. Time includes: direct patient care, patient reassessment, coordination of patient care, interpretation of data (laboratory data, pulse oximetry,) review of patient's medical records, medical consultation and documentation of patient care. IV valium for mild etoh withdrawal, repeat labs to assess for ABLA. Procedures excluded from critical care time: central intravenous line placement and electrocardiography. I attest to this time spent taking care of the patient Discharge Plan Discharge Clinical Impression: Bright red rectal bleeding Acute alcoholic gastritis Qualifiers: Gastritis bleeding: with bleeding Qualified Code(s): K29.21 - Alcoholic gastritis with bleeding Patient Disposition: Home, Self-Care Instructions: Gastritis (ED), Gastrointestinal Bleeding (ED), Rectal Bleeding (ED), Alcohol Use Disorder (ED) Additional Instructions: repeat labs stable avoid aspirin, motrin, aleve, ibuprofen return for any worsening symptoms or concerns call your primary care doctor consider detox librium is ordered for help with alcohol withdrawal no signs of loss of blood on today's exam eat a bland diet for the next 48 hours rest and stay hydrated if we were able to send off stool sample we will call you with positive results in the next 24-48 hours Alcohol use disorder You were seen in the Emergency Department today for treatment of alcohol use disorder.? You may have been given medications to help with your withdrawal symptoms.? Please do not drink alcohol with them. This is very dangerous and can cause respiratory depression or other adverse reactions depending on the medication. If you would like to cut down or stop your alcohol use please consider calling our outpatient Addiction Treatment office:? [facility] (M-F [id number]) [address] [place] [address]. [address] ? You have also been given a list of treatment providers in the area that can assist as well.? If you experience seizures, vomiting blood, black stools, falls, severe headache, chest pain, fevers, trouble breathing, hallucinations or any other concerns you need to call 911 or seek immediate care. Please stay hydrated. Prescriptions: New ondansetron 4 mg tablet,disintegrating 4 mg PO Q8H PRN (Reason: nausea and vomiting) Qty: 20 0RF omeprazole 20 mg capsule,delayed release(DR/EC) 20 mg PO BID 14 Days Qty: 28 0RF chlordiazepoxide HCl 25 mg capsule 50 mg PO Q4H PRN (Reason: alcohol withdrawal) Qty: 12 0RF Rx Instructions: until symptoms controlled ondansetron 4 mg tablet,disintegrating 4 mg PO Q8H PRN (Reason: nausea and vomiting) Qty: 20 0RF No Action prednisone 20 mg tablet 40 mg PO DAILY Qty: 10 0RF albuterol sulfate [ProAir HFA] 90 mcg/actuation HFA aerosol inhaler 2 puff inhalation Q4-6H PRN (Reason: shortness of breath or wheezing) Qty: 8.5 0RF doxycycline hyclate 100 mg capsule 100 mg PO BID 7 Days Qty: 14 0RF albuterol sulfate 90 mcg/actuation HFA aerosol inhaler 2 puff inhalation Q4-6H PRN (Reason: shortness of breath or wheezing) Qty: 8.5 0RF prednisone 50 mg tablet 50 mg PO DAILY Qty: 5 0RF Referrals: [facility] [place] [facility] [Provider Group, Gastroenterology] Referral Note: call to schedule appointment Stand Alone Forms: Work/School Release Print Language: Estonian
--- NOTE | 2025-01-06 13:40 | ECG_ITS ---
Test Reason : ABD PAIN Blood Pressure : */* mmHG Vent. Rate : 76 BPM Atrial Rate : 76 BPM P-R Int : 130 ms QRS Dur : 88 ms QT Int : 400 ms P-R-T Axes : 68 77 57 degrees QTcB Int : 450 ms Normal sinus rhythm with sinus arrhythmia Normal ECG When compared with ECG of 01-Dec-2023 21:09, No significant change was found Referred By: Nasima Rm Electronically Signed By: BERTHA ZEE
[2025-01-06 14:05] LABS: MANUAL DIFF FLAG NO
[2025-01-06 14:07] LABS: Hematocrit 45.5 % (42.0-52.0); Hemoglobin 16.1 g/dl (14.0-18.0); Imm Gran Abs Auto 0.02 X10*3/uL (0.00-0.03); Imm Gran Pct Auto 0.3 % (0.0-0.4); Lymphocytes Absolute Auto 1.3 X10*3/uL (1.2-4.9); Mean Corpuscular HGB Conc 35.4 g/dl (31.0-36.0); Mean Corpuscular Hemoglobin 30.1 pg (27.0-33.0); Mean Corpuscular Volume 85.2 fL (80.0-98.0); NRBC Abs Auto 0.000 X10*3/uL (0.0-0.012); NRBC Pct Auto 0.0 /100WBC (0.0-0.2); Platelet Count 230 X10*3/uL (160-400); Red Blood Count 5.34 X10*6/uL (4.60-5.80); White Blood Count 7.7 X10*3/uL (4.8-10.8)
[2025-01-06 14:17] LABS: INTERNATIONAL NORM RATIO 1.1 (0.9-1.1); Prothrombin Time 12.6 SEC (10.9-12.4)
[2025-01-06 14:29] LABS: Alanine Aminotransferase 51 U/L (0-40); Albumin Level 4.9 g/dL (3.5-5.0); Alkaline Phosphatase 60 U/L (39-117); Anion Gap 16 (12-20); Aspartate Amino Transferase 42 U/L (5-37); Blood Urea Nitrogen 21 mg/dL (9-16); Calcium 9.3 mg/dL (8.4-10.2); Carbon Dioxide 25 mmol/L (22-29); Chloride 102 mmol/L (96-108); Creatinine Clr Calc Pharmacy 118.7; Estimated Glomerular Filt Rate > 60; Lipase 12 U/L (8-78); Magnesium 1.9 mg/dL (1.6-2.6); Potassium 4.3 mmol/L (3.3-5.1); Sodium 139 mmol/L (135-145); Total Protein 7.6 g/dL (6.5-8.0)
[2025-01-06 15:58] LABS: OBS Int Ctl Valid YES; OBS1 NEGATIVE (NEGATIVE)
--- OUTSIDE RECORDS SUMMARY | 2025-01-06 16:17 | XMS_ITS | Clinical Summary ---
Author Organization [facility] Address [address] [place] [address] Care Team Providers Care Circular Knitter Name Role Phone Patient, Has No Pcp Or Ref Primary Care Provider Unavailable Allergies No known active allergies Medications * This document contains information received from the source organization and may not represent a complete record from that organization. albuterol (PROAIR HFA,VENTOLIN HFA) 90 mcg inhaler Inhale 1-2 puffs by mouth every 6 hours as needed for wheezing or shortness of breath. Use with spacer. Active budesonide-form oteroL (SYMBICORT) 160-4.5 mcg inhaler Inhale 2 puffs by mouth 2 times a day. Rinse mouth with water after use. Do not swallow. Active Active Problems Problem Noted Date Diagnosed Date Alcohol use disorder, mild, abuse 03/27/2023 Social History Tobacco Use Types Packs/Day Years Used Date Smoking Tobacco: Never Smokeless Tobacco: Never Tobacco Cessation:Counseling Given: Not Answered Alcohol Use Standard Drinks/Week Comments Yes 6 (1 standard drink = 0.6 oz pur e alcohol) 3-4 nips 3-4x/week Sex and Gender Information Value Date Recorded Sex Assigned at Male 08/26/2024 2:17 PM EST Legal Sex Male 1:12 AM EDT Gender Identity Not on file Sexual Orientation Not on file Last Filed Vital Signs Vital Sign Reading Time Taken Comments Blood Pressure 139/78 08/26/2024 1:45 PM EST Pulse 109 08/26/2024 1:45 PM EST Temperature 36.7 C (98.1 F) 08/26/2024 1:45 PM EST Respiratory Rate 15 08/26/2024 1:45 PM EST Oxygen Saturation 97% 08/26/2024 1:45 PM EST Inhaled Oxygen Concentration - - Weight 99.8 kg (220 lb) 08/26/2024 1:45 PM EST Height 177.8 cm (5' 10 ) 08/26/2024 1:45 PM EST Body Mass Index 31.57 08/26/2024 1:45 PM EST Plan of Treatment Health Maintenance Due Date Last Done Comments HIV Screening 1997 Hepatitis C Screening 1997 Pneumococcal Vaccine: Pediat los (0-5 Years) and At-Risk Patients (6-50 Years) (1 of 2 - PCV) 2016 COVID-19 Vaccine (1 - 2023- season) 2024 Alcohol/Substance Use Screening 06/23/2024 Depression Screening and Follow-Up 06/23/2024 Social Drivers of Health Leeanna ual Screening 06/23/2024 Influenza Vaccine (#1) 2025 0, 05/05/2019, 10/02/2018 DTaP,Tdap,and Td Vaccines (3 - Td or Tdap) 08/15/2031 08/15/2021, 10/02/2018 RSV Vaccine (60+ years old a nd patients) (1 - 1-dose 75+ series) 2072 Varicella Vaccines Completed 11/23/2018, 10/07/2018 Hepatitis B Vaccines Completed 05/05/2019, 11/23/2018, 10/07/2018 Care Teams Circular Knitter Relationship Specialty Start Date End Date Patient, Has No Pcp Or Ref DO NOT EDIT THIS RECORD VIA PROVIDER ON THE FLY PCP - [facility] [employer] [facility] 08/26/24
[2025-01-06 17:01] LABS: Hematocrit 44.4 % (42.0-52.0); Hemoglobin 15.8 g/dl (14.0-18.0); Mean Corpuscular HGB Conc 35.6 g/dl (31.0-36.0); Mean Corpuscular Hemoglobin 30.2 pg (27.0-33.0); Mean Corpuscular Volume 84.7 fL (80.0-98.0); NRBC Abs Auto 0.000 X10*3/uL (0.0-0.012); NRBC Pct Auto 0.0 /100WBC (0.0-0.2); Platelet Count 238 X10*3/uL (160-400); Red Blood Count 5.24 X10*6/uL (4.60-5.80); White Blood Count 8.0 X10*3/uL (4.8-10.8)
[2025-01-06] MEDS: Lactated Ringers 1,000 ML 999 ML IV (17:17)
[2025-01-06] MEDS: Thiamine HCL 200 MG in 0.9 % Sodium Chloride 100 ML 204 MG IV (17:17)
[2025-01-06] MEDS: diazePAM 10 MG/2 ML CARTRIDGE 2.5 MG IVPUSH (17:19)
[2025-01-06] MEDS: iohexoL 350 MG/ML 100 ML INFUS..BTL 85 ML IV (18:00)
[2025-01-06 18:17] VITALS: BP 140/79; PULSE 78; RESP 16; TEMP 36.9; O2SAT 98
[2025-01-06 20:16] VITALS: BP 140/79; PULSE 78; RESP 16; TEMP 36.9; O2SAT 98
== END 2025-01-06 19:50 | disposition home or self-care (01) ==
PROVIDERS: Emergency Medicine; Registered Nurse Emergency; Emergency Provider Internal Medicine
DX: K62.5 Hemorrhage of anus and rectum (principal); K29.21 Alcoholic gastritis with bleeding; R10.2 Pelvic and perineal pain; I49.8 Other specified cardiac arrhythmias; R11.2 Nausea with vomiting, unspecified; Z51.81 Encounter for therapeutic drug level monitoring; Z79.899 Other long term (current) drug therapy
CPT/HCPCS: 36415; 74177; 80053; 80307; 82272; 83690; 83735; 85025; 85027; 85610; 93005; 96361; 96374; 96375; 99285; 99291; J2470; J3360; J3411; J7120; Q9967

== ENCOUNTER → 2025-01-06 13:40 | Outpatient (BNV) | payer OTHER, SELFPAY | PROVIDERS: Emergency Provider Internal Medicine; Visit Provider Internal Medicine | DX: R10.9 Unspecified abdominal pain (principal) | CPT/HCPCS: 93010 ==

== ENCOUNTER → 2025-01-06 16:36 | Outpatient (BNV) | payer OTHER, SELFPAY | PROVIDERS: Emergency Provider Internal Medicine; Visit Provider Radiology Diagnostic Radiology | DX: K52.9 Noninfective gastroenteritis and colitis, unspecified (principal) | CPT/HCPCS: 74177 ==